=== PATIENT | female | born 1955 | race Two or more races ===

== ENCOUNTER 2021-04-05 23:23 | Inpatient (IN) | payer MEDICARE, MEDICAID ==
[~2021-04-05] VITALS: Ht 167.6 cm; Wt 87.0 kg
[2021-04-06 00:20] LABS: INR 1.32 (0.9-1.15)
[2021-04-06 00:31] LABS: Alanine Aminotransferase 67 U/L (13-56); Albumin 2.8 g/dL (3.4-5.0); Anion Gap 8 (5-15); Aspartate Aminotransferase 72 U/L (15-37); BUN/Creatinine Ratio 16.9; Blood Alcohol < 3.0 mg/dL (0-5); Blood Urea Nitrogen 15 mg/dL (7-18); Calcium 9.5 mg/dL (8.5-10.1); Carbon Dioxide 17 mmol/L (21-32); Chloride 115 mmol/L (98-107); GFR African American 82 mL/min; GFR Non-African American 68 mL/min; Glucose 248 mg/dL (74-106); Magnesium 2.2 mg/dL (1.6-2.6); Potassium 4.4 mmol/L (3.5-5.1); Sodium 140 mmol/L (136-145)
[2021-04-06 00:32] LABS: Lactic Acid w/Reflex 2.3 mmol/L (0.4-2.0)
[2021-04-06 00:34] LABS: Alkaline Phosphatase 99 U/L (45-117); Bilirubin, Total 2.8 mg/dL (0.2-1.0); Total Protein 6.9 g/dL (6.4-8.2)
[2021-04-06 01:19] LABS: Basophils # (auto) 0 10 ^3/uL (0-0.2); Eosinophils # (auto) 0.1 10 ^3/uL (0-0.8); Lymphocytes # (auto) 1.2 10 ^3/uL (0.4-5.4); Monocytes # (auto) 0.4 10 ^3/uL (0-1.3); Neutrophils # (auto) 2.2 10 ^3/uL (1.6-8.6); White Blood Cell 3.9 10^3/uL (4.4-10.8)
[2021-04-06 01:20] LABS: Basophils % (auto) 0.6 % (0.0-2.0); Hematocrit 31.3 % (36.0-46.0); Hemoglobin 11.1 g/dL (12.2-16.2); Lymphocytes % (auto) 31.1 % (10.0-50.0); Mean Corpuscular Hemoglobin 36.2 pg (28.0-32.0); Mean Corpuscular Hgb Conc. 35.7 g/dL (32.0-36.0); Mean Corpuscular Volume 101.6 fL (80.0-100.0); Monocytes % (auto) 9.6 % (0.0-12.0); Neutrophils % (auto) 55.7 % (37.0-80.0); Nucleated Red Blood Cells % 0.1 %; Red Blood Cells 3.07 10^6/uL (4.0-5.20); Red Cell Distribution Width 14.2 % (11.8-14.3)
[2021-04-06 01:38] LABS: Alcohol, Urine < 3.0 mg/dL (0-10); Amphetamine Screen, Urine NEGATIVE (NEGATIVE); Barbiturate Scree,Urine NEGATIVE (NEGATIVE); Benzodiazephine Screen, Urine NEGATIVE (NEGATIVE); Cannabinoid Screen, Urine NEGATIVE (NEGATIVE); Cocaine Screen, Urine NEGATIVE (NEGATIVE); Opiate Scree,Urine NEGATIVE (NEGATIVE); Phencyclidine Screen, Urine NEGATIVE (NEGATIVE)
[2021-04-06 01:44] LABS: Urine Bacteria MANY /hpf (None Seen); Urine Blood Negative /uL (Negative); Urine Hyaline Cast FEW /lpf (0 - 2); Urine Mucus FEW (None Seen); Urine Specific Gravity 1.019 (1.001-1.035); Urine WBC 4 /hpf (0 - 5)
[2021-04-06] MEDS ORDERED: SODIUM CHLORIDE 0.9% 1,000 ML IV ONE ×2 (02:15→03:15)
[2021-04-06] MEDS ORDERED: cefTRIAXone 1GM/50ML D5W 50 ML IV ONE (02:15)
[2021-04-06] MEDS ORDERED: VANCOMYCIN 1GM/250ML 250 ML IV ONE (03:15)
[2021-04-06] MEDS ORDERED: levoFLOXacin 750MG 150 ML IV ONE (03:15)
[2021-04-06] MEDS ORDERED: LACTULOSE 20Gm/30ML SOLN PO ONE (03:15)
[2021-04-06] MEDS ORDERED: IOHEXOL 300 MG/ML 100ML BOTTLE IJ ONE (03:32)
[2021-04-06] MEDS ORDERED: SODIUM CHLORIDE 0.9% 1,000 ML IV SCH (04:00)
[2021-04-06] MEDS ORDERED: TEMAZEPAM 15 MG CAP PO PRN (04:00)
[2021-04-06] MEDS ORDERED: DEXTROSE (50%) 50ML SYRG IV PRN (04:00)
[2021-04-06] MEDS ORDERED: ONDANSETRON HCL 4 MG/2 ML VIAL IV PRN (04:00)
[2021-04-06] MEDS ORDERED: MORPHINE SULF INJ 2 MG/ML SYRINGE 1ML IV PRN (04:00)
[2021-04-06] MEDS ORDERED: VANCOMYCIN PER PHARMACY 0 MG IV SCH (04:00)
[2021-04-06] MEDS ORDERED: NITROGLYCERIN 0.4 MG SL TAB SL PRN (04:00)
[2021-04-06 06:02] LABS: Basophils # (auto) 0 10 ^3/uL (0-0.2); Basophils % (auto) 0.7 % (0.0-2.0); Eosinophils # (auto) 0.1 10 ^3/uL (0-0.8); Eosinophils % (auto) 3.4 % (0.0-7.0); Hematocrit 32.8 % (36.0-46.0); Hemoglobin 11.6 g/dL (12.2-16.2); Lymphocytes # (auto) 1.1 10 ^3/uL (0.4-5.4); Mean Corpuscular Hemoglobin 36.5 pg (28.0-32.0); Mean Corpuscular Hgb Conc. 35.4 g/dL (32.0-36.0); Mean Corpuscular Volume 103.2 fL (80.0-100.0); Monocytes # (auto) 0.4 10 ^3/uL (0-1.3); Monocytes % (auto) 10.3 % (0.0-12.0); Neutrophils # (auto) 1.8 10 ^3/uL (1.6-8.6); Neutrophils % (auto) 52.6 % (37.0-80.0); Nucleated Red Blood Cells % 0.1 %; Red Blood Cells 3.18 10^6/uL (4.0-5.20); Red Cell Distribution Width 14.3 % (11.8-14.3); White Blood Cell 3.5 10^3/uL (4.4-10.8)
[2021-04-06 06:13] LABS: Calcium 9.3 mg/dL (8.5-10.1); Lactic Acid w/Reflex 2.1 mmol/L (0.4-2.0); Potassium 3.9 mmol/L (3.5-5.1)
[2021-04-06] MEDS: LACTULOSE 20Gm/30ML SOLN PO SCH ×3 (06:14→17:29)
[2021-04-06 06:16] LABS: Albumin 2.7 g/dL (3.4-5.0); BUN/Creatinine Ratio 15.1
[2021-04-06 06:19] LABS: Bilirubin, Total 2.8 mg/dL (0.2-1.0); Total Protein 6.6 g/dL (6.4-8.2)
[2021-04-06] MEDS: InsuLIN REG 1unit/0.01ml Soln (100units/ml) SC SCH ×5 (07:00→21:40)
[2021-04-06] MEDS ORDERED: LORazepam 2MG/ML-1ML VIAL IV PRN (07:30)
[2021-04-06] MEDS ORDERED: LORazepam 2MG/ML-1ML VIAL ONE (07:35)
[2021-04-06] MEDS ORDERED: LORazepam 2MG/ML-1ML VIAL IV ONE (07:45)
[2021-04-06] MEDS: ACCU-CHEK COMFORT CURVE STRIP VI SCH ×4 (07:52→21:29)
[2021-04-06 08:56] VITALS: BP 139/77
[2021-04-06 08:57] VITALS: BP 139/77
[2021-04-06] MEDS ORDERED: ENOXAPARIN SOD 40 MG/0.4 ML SYRINGE SC SCH (10:00)
[2021-04-06] MEDS: ZINC SULFATE 220mg CAP or TAB PO SCH ×2 (10:00→10:26)
[2021-04-06] MEDS ORDERED: ASCORBIC ACID 500 MG TAB PO SCH (10:00)
[2021-04-06] MEDS ORDERED: FAMOTIDINE (10MG/ML) 2ML VL IV SCH (10:00)
[2021-04-06] MEDS: MULTIPLE VITAMIN TAB PO SCH ×2 (10:00→10:26)
[2021-04-06 12:00] VITALS: BP 134/62
[2021-04-06] MEDS ORDERED: LACTULOSE 20Gm/30ML SOLN PO SCH (12:00)
[2021-04-06] MEDS ORDERED: CLINDAMYCIN 600MG IV 50 ML IV ONE (13:15)
[2021-04-06] MEDS ORDERED: HALOPERIDOL LACTATE 5 MG/ML INJ VIAL IM ONE (13:30)
[2021-04-06] MEDS ORDERED: HALOPERIDOL LACTATE 5 MG/ML INJ VIAL IM PRN (13:30)
[2021-04-06] MEDS ORDERED: LACTULOSE 10g/15ml SOLN PR ONE (13:30)
[2021-04-06 16:32] VITALS: BP 142/70
[2021-04-06] MEDS ORDERED: SPIR25TA8 PO (16:56)
[2021-04-06] MEDS ORDERED: FURO20TA3 PO (16:57)
[2021-04-06] MEDS ORDERED: LISI-275 PO (16:57)
[2021-04-06] MEDS ORDERED: HYDR200T36 PO (17:00)
[2021-04-06] MEDS ORDERED: PRED2.5T4 PO (17:00)
[2021-04-06] MEDS ORDERED: GLIP5TAB12 PO (17:00)
[2021-04-06] MEDS ORDERED: RIFA550T PO (17:00)
[2021-04-06] MEDS ORDERED: VANCOMYCIN 1GM/250ML 250 ML IV SCH (18:00)
[2021-04-06] MEDS: FAMOTIDINE (10MG/ML) 2ML VL IV SCH (21:29)
[2021-04-06] MEDS: CLINDAMYCIN 600MG IV 50 ML IV SCH (21:46)
[2021-04-06 22:00] VITALS: BP 145/66
[2021-04-07 05:00] VITALS: BP 137/61
[2021-04-07] MEDS: LACTULOSE 20Gm/30ML SOLN PO SCH ×4 (06:10→18:03)
[2021-04-07] MEDS: CLINDAMYCIN 600MG IV 50 ML IV SCH ×3 (06:10→21:32)
[2021-04-07] MEDS: ACCU-CHEK COMFORT CURVE STRIP VI SCH ×4 (06:10→21:49)
[2021-04-07] MEDS: InsuLIN REG 1unit/0.01ml Soln (100units/ml) SC SCH ×4 (06:11→21:50)
[2021-04-07 06:30] LABS: Basophils # (auto) 0 10 ^3/uL (0-0.2); Eosinophils # (auto) 0.2 10 ^3/uL (0-0.8); Lymphocytes # (auto) 1.5 10 ^3/uL (0.4-5.4); Mean Corpuscular Hemoglobin 36.6 pg (28.0-32.0); Mean Corpuscular Hgb Conc. 35.7 g/dL (32.0-36.0); Monocytes # (auto) 0.4 10 ^3/uL (0-1.3); White Blood Cell 4.1 10^3/uL (4.4-10.8)
[2021-04-07 06:34] LABS: Basophils % (auto) 0.3 % (0.0-2.0); Eosinophils % (auto) 5.3 % (0.0-7.0); Hematocrit 33.1 % (36.0-46.0); Hemoglobin 11.8 g/dL (12.2-16.2); Lymphocytes % (auto) 36.7 % (10.0-50.0); Mean Corpuscular Volume 102.3 fL (80.0-100.0); Monocytes % (auto) 8.8 % (0.0-12.0); Neutrophils % (auto) 48.9 % (37.0-80.0); Nucleated Red Blood Cells % 0.1 %; Red Blood Cells 3.24 10^6/uL (4.0-5.20); Red Cell Distribution Width 14.2 % (11.8-14.3)
[2021-04-07 06:38] LABS: INR 1.24 (0.9-1.15); Partial Thromboplastin Time 31.6 sec (23.6-33.0)
[2021-04-07 06:51] LABS: Chloride 120 mmol/L (98-107); Potassium 3.6 mmol/L (3.5-5.1); Sodium 145 mmol/L (136-145)
[2021-04-07 07:12] LABS: Alanine Aminotransferase 57 U/L (13-56); Albumin 2.6 g/dL (3.4-5.0); Alkaline Phosphatase 81 U/L (45-117); Anion Gap 7 (5-15); Aspartate Aminotransferase 60 U/L (15-37); BUN/Creatinine Ratio 14.9; Bilirubin, Total 3.8 mg/dL (0.2-1.0); Blood Urea Nitrogen 13 mg/dL (7-18); Calcium 9.3 mg/dL (8.5-10.1); Carbon Dioxide 18 mmol/L (21-32); GFR African American 84 mL/min; GFR Non-African American 69 mL/min; Glucose 97 mg/dL (74-106); Phosphorus 2.5 mg/dL (2.5-4.90); Total Protein 6.4 g/dL (6.4-8.2)
[2021-04-07 08:30] VITALS: BP 141/75
[2021-04-07] MEDS: MULTIPLE VITAMIN TAB PO SCH (10:36)
[2021-04-07] MEDS: levoFLOXacin 500MG 100 ML IV SCH (10:37)
[2021-04-07] MEDS: FAMOTIDINE (10MG/ML) 2ML VL IV SCH ×2 (10:37→21:32)
[2021-04-07 12:30] VITALS: BP 154/74
[2021-04-07] MEDS ORDERED: URSO1TAB8 PO (13:02)
[2021-04-07] MEDS: glipiZIDE 5 MG TAB PO SCH (16:45)
[2021-04-07 17:00] VITALS: BP 139/66
[2021-04-07 22:00] VITALS: BP 129/49
[2021-04-08] MEDS: LACTULOSE 20Gm/30ML SOLN PO SCH ×4 (00:01→18:11)
[2021-04-08 05:00] VITALS: BP 142/61
[2021-04-08] MEDS: glipiZIDE 5 MG TAB PO SCH ×2 (06:29→18:11)
[2021-04-08] MEDS: InsuLIN REG 1unit/0.01ml Soln (100units/ml) SC SCH ×3 (06:29→17:00)
[2021-04-08] MEDS: CLINDAMYCIN 600MG IV 50 ML IV SCH ×2 (06:29→13:33)
[2021-04-08] MEDS: ACCU-CHEK COMFORT CURVE STRIP VI SCH ×3 (06:29→18:05)
[2021-04-08 09:00] VITALS: BP 136/50
[2021-04-08] MEDS ORDERED: FUROSEMIDE 20 MG TAB PO SCH (10:00)
[2021-04-08] MEDS ORDERED: hydrOXYchloroQUINE SULFATE 200 MG TAB PO SCH (10:00)
[2021-04-08] MEDS ORDERED: predniSONE 5 MG TAB PO SCH (10:00)
[2021-04-08] MEDS ORDERED: LISINOPRIL 5 MG TAB PO SCH (10:00)
[2021-04-08] MEDS: levoFLOXacin 500MG 100 ML IV SCH (11:06)
[2021-04-08] MEDS: MULTIPLE VITAMIN TAB PO SCH (11:45)
[2021-04-08] MEDS: FAMOTIDINE (10MG/ML) 2ML VL IV SCH (11:46)
[2021-04-08 12:55] LABS: Hepatitis B Surface Antigen Negative (Negative); Hepatitis C Antibody Negative (Negative)
[2021-04-08 17:00] VITALS: BP 140/60
[2021-04-08 17:27] VITALS: BP 140/60
[2021-04-09] MEDS ORDERED: levoFLOXacin 500 MG TAB PO SCH (10:00)
== END 2021-04-08 19:00 | disposition home health service (06) | DRG 871 ==
LOC: ER 23:23 → TELE 04-06 04:00 → TELE-WESTW 04-06 08:23
PROVIDERS: ADMIT Nurse Practitioner Family; ATTEND Family Medicine
DX: A41.9 Sepsis, unspecified organism (principal); G93.41 Metabolic encephalopathy; K72.00 Acute and subacute hepatic failure without coma; D61.818 Other pancytopenia; N39.0 Urinary tract infection, site not specified; I10 Essential (primary) hypertension; E78.5 Hyperlipidemia, unspecified; B96.20 Unspecified Escherichia coli [E. coli] as the cause of diseases classified elsewhere; E11.65 Type 2 diabetes mellitus with hyperglycemia; K74.60 Unspecified cirrhosis of liver; K74.3 Primary biliary cirrhosis; Z20.822 Contact with and (suspected) exposure to COVID-19; E66.9 Obesity, unspecified; K76.0 Fatty (change of) liver, not elsewhere classified; Z83.3 Family history of diabetes mellitus; Z88.0 Allergy status to penicillin; Z68.31 Body mass index [BMI] 31.0-31.9, adult
CPT/HCPCS: 36415; 74177; 80053; 80307; 80320; 81001; 82140; 82306; 82962; 83036; 83605; 83735; 83880; 84100; 84443; 84484; 85025; 85610; 85730; 86803; 87040; 87086; 87088; 87186; 87340; 87426; 96361; 96365; 96367; G0378; J1815; J1956; J2405; J3490